=== PATIENT | female | born 1950 | race Caucasian/White ===

== ENCOUNTER 2019-08-25 15:00 | Inpatient (IN) ==
[2019-08-25] MEDS ORDERED: Ipratropium/Albuterol Neb 3 ML IH ONE (15:03)
[2019-08-25] MEDS ORDERED: methylPREDNISolone 125 MG/2 ML VIAL IVP ONE (15:03)
[2019-08-25] MEDS ORDERED: Azithromycin 500 MG in 0.9 % Sodium Chloride 250 ML IVPB ONE (15:03)
[2019-08-25] MEDS ORDERED: cefTRIAXone 2,000 MG in Water for inj. (sterile) 10 ML IVP ONE (15:03)
[2019-08-25 15:46] LABS: Basophils % 0.3 %; Eosinophils # 0.1 K/mcL (0.0-0.6); Hemoglobin 11.1 g/dL (11.5-15.4); Immature Granulocytes % 0.7 % (0-4); Lymphocytes # 0.9 K/mcL (0.6-4.6); Lymphocytes % 9.4 %; Mean Corpuscular HGB Conc 31.7 g/dL (31.6-35.5); Mean Corpuscular Hemoglobin 26.6 pg (28.0-33.3); Mean Corpuscular Volume 83.7 fL (83.0-100.0); Mean Platelet Volume 9.6 fL (9.4-12.4); Monocytes # 0.5 K/mcL (0.0-1.3); Monocytes % 5.1 %; Neutrophils # 8.4 K/mcL (1.6-8.9); Platelet Count 186 K/mcL (140-400); Red Blood Count 4.18 M/mcL (3.82-4.97); Red Cell Distribution Width 15.1 % (11.5-14.5); Segmented Neutrophils % 83.5 %
[2019-08-25 15:57] LABS: Prothrombin Time 10.8 Seconds (9.4-12.1)
[2019-08-25 16:00] LABS: BUN/Creatinine Ratio 29 (6-26); Blood Urea Nitrogen 24 mg/dL (8-23); Calcium 9.2 mg/dL (8.6-10.3); Carbon Dioxide 34 mEq/L (23-29); Chloride 99 mEq/L (98-107); Glucose 147 mg/dL (70-105); Osmolality,Calculated 301 (280-300); Potassium 3.5 mEq/L (3.5-5.1); Sodium 142 mEq/L (136-145); eGFR For African Americans > 60 (> 60); eGFR For Non-African Americans > 60 (> 60)
[2019-08-25 16:05] LABS: Troponin I < 0.03 ng/mL (< 0.04)
[2019-08-25 17:47] LABS: Adenovirus Not Detected (Not Detect); Bordetella Pertussis Not Detected (Not Detect); Chlamydophila pneumoniae Not Detected (Not Detect); Coronavirus 229E Not Detected (Not Detect); Coronavirus HKU1 Not Detected (Not Detect); Coronavirus NL63 Not Detected (Not Detect); Coronavirus OC43 Not Detected (Not Detect); Human Metapneumovirus Not Detected (Not Detect); Human Rhinovirus/Enterovirus Not Detected (Not Detect); Influenza A Subtype 2009 H1 Not Detected (Not Detect); Influenza B Not Detected (Not Detect); Mycoplasma pneumoniae Not Detected (Not Detect); Parainfluenza Virus 1 Not Detected (Not Detect); Parainfluenza Virus 2 Not Detected (Not Detect); Parainfluenza Virus 3 Not Detected (Not Detect); Parainfluenza Virus 4 Not Detected (Not Detect); Respiratory Syncytial Virus Not Detected (Not Detect)
[2019-08-25] MEDS ORDERED: Ondansetron 4 MG/2 ML VIAL IVP PRN (18:42)
[2019-08-25] MEDS ORDERED: Naloxone 0.4 MG/ML INJ IVP PRN (18:42)
[2019-08-25] MEDS ORDERED: Mag Hydrox/Al Hydrox/Simeth 30 ML UDC PO PRN (18:42)
[2019-08-25] MEDS ORDERED: MOM Conc 10 ML UD.LIQ PO PRN (18:42)
[2019-08-25] MEDS ORDERED: D5% in Water 1,000 ML IVC PRN (18:48)
[2019-08-25] MEDS ORDERED: *HR* Dextrose 50 % in Water (Vial) 50 ML VIAL IVP PRN (18:48)
[2019-08-25] MEDS ORDERED: Dextrose Gel 15 GM/37.5 ML TUBE PO PRN ×2 (18:48)
[2019-08-25] MEDS: Ipratropium/Albuterol Neb 3 ML IH SCH ×2 (20:17→23:29)
[2019-08-25] MEDS: atenoloL 50 MG TABLET PO SCH (20:44)
[2019-08-25] MEDS: Insulin LISPRO 300 UNITS/3 ML VIAL SQ SCH (20:45)
[2019-08-25] MEDS ORDERED: Insulin DETEMIR 100 UNIT/ML per UNIT SQ ONE (21:00)
[2019-08-25] MEDS: Melatonin 3 MG TABLET PO SCH (21:22)
[2019-08-25 22:47] LABS: Bilirubin,Urine Negative (Negative); Blood,Urine Negative (Negative); Clarity,Urine Clear (Clear); Color,Urine Yellow (Yellow); Glucose,Urine (UA) 250 mg/dL (Normal); Ketones,Urine Negative (Negative); Leukocyte Esterase,Urine Negative (Negative); Nitrite,Urine Negative (Negative); PH,Urine 6.5 pH Units (5.0-8.0); Protein,Urine Trace mg/dL (Neg-Trace); Urobilinogen,Urine Normal (Normal)
[2019-08-25 22:54] LABS: Bacteria,Urine Few per hpf (None-Few); RBC,Urine 0-3 per hpf (0-3); Squamous Epithelial Cell,Urine Few per hpf (None-Few); WBC,Urine 0-3 per hpf (0-3)
[2019-08-26] MEDS: MethylPREDNISolone 40 MG/ML VIAL IVP SCH ×4 (00:27→23:44)
[2019-08-26] MEDS: Acetaminophen 325 MG TABLET PO PRN ×2 (04:03→13:30)
[2019-08-26] MEDS: Ipratropium/Albuterol Neb 3 ML IH SCH ×5 (04:31→20:44)
[2019-08-26 08:09] LABS: Basophils % 0.1 %; Hematocrit 33.9 % (35.3-44.9); Immature Granulocytes % 0.4 % (0-4); Lymphocytes # 0.4 K/mcL (0.6-4.6); Lymphocytes % 6.3 %; Mean Corpuscular HGB Conc 32.4 g/dL (31.6-35.5); Mean Corpuscular Hemoglobin 26.6 pg (28.0-33.3); Mean Corpuscular Volume 81.9 fL (83.0-100.0); Mean Platelet Volume 9.9 fL (9.4-12.4); Monocytes # 0.1 K/mcL (0.0-1.3); Monocytes % 1.2 %; Neutrophils # 6.2 K/mcL (1.6-8.9); Platelet Count 190 K/mcL (140-400); Red Blood Count 4.14 M/mcL (3.82-4.97); Red Cell Distribution Width 14.8 % (11.5-14.5); White Blood Count 6.8 K/mcL (4.3-11.1)
[2019-08-26 08:28] LABS: BUN/Creatinine Ratio 27 (6-26); Blood Urea Nitrogen 21 mg/dL (8-23); Calcium 9.3 mg/dL (8.6-10.3); Carbon Dioxide 33 mEq/L (23-29); Chloride 95 mEq/L (98-107); Glucose 252 mg/dL (70-105); Osmolality,Calculated 298 (280-300); Potassium 3.2 mEq/L (3.5-5.1); Sodium 138 mEq/L (136-145); eGFR For African Americans > 60 (> 60); eGFR For Non-African Americans > 60 (> 60)
[2019-08-26] MEDS: Budesonide/Formoterol 160/4.5 1 PUFF INH IH SCH ×2 (08:35→20:45)
[2019-08-26] MEDS: FLUoxetine 20 MG CAPSULE PO SCH (08:51)
[2019-08-26] MEDS: Insulin LISPRO 300 UNITS/3 ML VIAL SQ SCH ×4 (08:51→20:01)
[2019-08-26] MEDS: amLODIPine 5 MG TABLET PO SCH (08:51)
[2019-08-26] MEDS: lisinopriL 20 MG TABLET PO SCH (08:51)
[2019-08-26] MEDS ORDERED: Tiotropium 18 MCG inhalation IH SCH (10:00)
[2019-08-26] MEDS ORDERED: cefTRIAXone 1,000 MG in Water for inj. (sterile) 10 ML IVPB SCH (16:00)
[2019-08-26] MEDS ORDERED: Azithromycin 500 MG in 0.9 % Sodium Chloride 250 ML IVPB SCH (16:00)
[2019-08-26] MEDS: Melatonin 3 MG TABLET PO SCH (20:00)
[2019-08-26] MEDS: atenoloL 50 MG TABLET PO SCH (20:00)
[2019-08-26] MEDS: Neosporin OINT 15 GM TUBE TP SCH (20:09)
[2019-08-26] MEDS ORDERED: Insulin DETEMIR 100 UNIT/ML X5UNITS SQ SCH (21:00)
[2019-08-27] MEDS: Ipratropium/Albuterol Neb 3 ML IH SCH ×3 (00:34→08:43)
[2019-08-27] MEDS: lisinopriL 20 MG TABLET PO SCH (07:26)
[2019-08-27] MEDS: FLUoxetine 20 MG CAPSULE PO SCH (07:27)
[2019-08-27] MEDS: amLODIPine 5 MG TABLET PO SCH (07:27)
[2019-08-27] MEDS: MethylPREDNISolone 40 MG/ML VIAL IVP SCH (07:28)
[2019-08-27] MEDS: Insulin LISPRO 300 UNITS/3 ML VIAL SQ SCH ×2 (07:28→12:12)
[2019-08-27] MEDS: Neosporin OINT 15 GM TUBE TP SCH (07:28)
[2019-08-27] MEDS: Budesonide/Formoterol 160/4.5 1 PUFF INH IH SCH (08:49)
[2019-08-27 10:09] VITALS: BP 125/77
== END 2019-08-27 14:05 | disposition home or self-care (01) | DRG 190 ==
LOC: EMEROOPIK 15:00 → INPPIK 15:00
PROVIDERS: ADMIT Family Medicine; ATTEND Family Medicine